=== PATIENT | male | born 1990 | race Two or more races ===

== ENCOUNTER 2017-08-12 23:21 | Emergency (ER) | payer BC ==
[~2017-08-12] VITALS: Ht 177.8 cm; Wt 59.0 kg
[2017-08-13 00:12] LABS: Lymphocytes # (auto) 1.5 uL; Monocytes # (auto) 0.4 uL; Nucleated Red Blood Cells % 0.2 %; Platelet Count (auto) 190 10^3/uL (140-450)
[2017-08-13 00:13] LABS: Basophils # (auto) 0 uL; Basophils % (auto) 0.7 % (0.0-2.0); Eosinophils # (auto) 0 uL; Eosinophils % (auto) 0.6 % (0.0-7.0); Hematocrit 52.3 % (41.0-53.0); Hemoglobin 17.9 g/dL (13.5-17.5); Lymphocytes % (auto) 26.7 % (10.0-50.0); Mean Corpuscular Hgb Conc. 34.2 g/dL (32.0-36.0); Mean Corpuscular Volume 99.3 fL (80.0-100.0); Monocytes % (auto) 7.6 % (0.0-12.0); Neutrophils # (auto) 3.7 uL; Neutrophils % (auto) 64.4 % (37.0-80.0); Red Blood Cells 5.27 10^6/uL (4.5-5.90); Red Cell Distribution Width 13.3 % (11.8-14.3); White Blood Cell 5.7 10^3/uL (4.4-10.8)
[2017-08-13 00:27] LABS: Albumin 4.5 g/dL (3.4-5.0); BUN/Creatinine Ratio 9.3; Calcium 8.3 mg/dL (8.5-10.1); Potassium 3.6 mmol/L (3.5-5.1)
[2017-08-13 00:40] LABS: Bilirubin, Total 0.2 mg/dL (0.2-1.0); Total Protein 8.7 g/dL (6.4-8.2)
[2017-08-13 00:42] LABS: Urine Bacteria NONE SEEN /hpf (None Seen); Urine Blood Negative /uL (Negative); Urine Mucus FEW (None Seen); Urine Specific Gravity 1.017 (1.001-1.035); Urine WBC <1 /hpf (0 - 3)
[2017-08-13 01:00] LABS: Amphetamine Screen, Urine NEGATIVE (NEGATIVE); Barbiturate Scree,Urine NEGATIVE (NEGATIVE); Benzodiazephine Screen, Urine NEGATIVE (NEGATIVE); Cannabinoid Screen, Urine NEGATIVE (NEGATIVE); Cocaine Screen, Urine NEGATIVE (NEGATIVE); Opiate Scree,Urine NEGATIVE (NEGATIVE); Phencyclidine Screen, Urine NEGATIVE (NEGATIVE)
[2017-08-13 05:00] VITALS: BP 101/68
== END 2017-08-13 06:10 | disposition left against medical advice (07) ==
LOC: ER 23:32
DX: R45.86 Emotional lability (principal); Z53.21 Procedure and treatment not carried out due to patient leaving prior to being seen by health care provider
CPT/HCPCS: 36415; 80053; 80307; 80320; 81001; 85025

== ENCOUNTER 2021-05-28 06:48 | Emergency (ER) | payer BC, OTHER ==
[~2021-05-28] VITALS: Ht 182.9 cm; Wt 70.3 kg
[2021-05-28 07:30] VITALS: BP 117/73
== END 2021-05-28 08:12 | disposition home or self-care (01) ==
LOC: ER 06:48
DX: R20.0 Anesthesia of skin (principal); R22.31 Localized swelling, mass and lump, right upper limb; Z88.0 Allergy status to penicillin
CPT/HCPCS: 29125; 73110

== ENCOUNTER 2024-11-15 14:31 | Outpatient (CLI) | payer MEDICAID ==
[2024-11-15 15:24] LABS: Urine Bacteria None Seen /hpf (None Seen)
[2024-11-15 15:31] LABS: Basophils # (auto) 0 10 ^3/uL (0-0.2); Basophils % (auto) 0.4 % (0.0-2.0); Eosinophils # (auto) 0.1 10 ^3/uL (0-0.8); Eosinophils % (auto) 0.6 % (0.0-7.0); Hematocrit 43.4 % (41.0-53.0); Hemoglobin 14.9 g/dL (13.5-17.5); Lymphocytes # (auto) 1.7 10 ^3/uL (0.4-5.4); Lymphocytes % (auto) 21.1 % (10.0-50.0); Mean Corpuscular Hemoglobin 30.6 pg (28.0-32.0); Mean Corpuscular Hgb Conc. 34.3 g/dL (32.0-36.0); Mean Corpuscular Volume 89.1 fL (80.0-100.0); Monocytes # (auto) 0.4 10 ^3/uL (0-1.3); Monocytes % (auto) 4.7 % (0.0-12.0); Neutrophils % (auto) 73.2 % (37.0-80.0); Nucleated Red Blood Cells % 0.2 %; Platelet Count (auto) 174 10^3/uL (140-450); Red Blood Cells 4.87 10^6/uL (4.5-5.90); Red Cell Distribution Width 12.9 % (11.8-14.3); White Blood Cell 8.2 10^3/uL (4.4-10.8)
[2024-11-15 15:45] LABS: Urine Blood Negative /uL (Negative); Urine Clarity Clear (Clear); Urine Color Light-Yellow (Yellow); Urine Mucus FEW (None Seen); Urine Protein, UAD Negative (Negative); Urine Specific Gravity 1.019 (1.001-1.035); Urine Squamous Epithelial Cell None Seen /hpf (<5); Urine Urobilinogen Normal (Negative); Urine WBC 1 /HPF (0-3); Urine pH 5.5 (5.0-9.0)
[2024-11-15 15:51] LABS: Alanine Aminotransferase 13 U/L (7-40); Alkaline Phosphatase 98 U/L (46-116); Anion Gap 7 (5-15); Aspartate Aminotransferase 14 U/L (13-40); BUN/Creatinine Ratio 10.5 (10.0-20.0); Calcium 10.3 mg/dL (8.7-10.4); Carbon Dioxide 28 mmol/L (20-31); Chloride 107 mmol/L (98-107); Cholesterol 162 mg/dL (< 200); Glucose 83 mg/dL (74-106); HDL Cholesterol 49 mg/dL (40-59); Potassium 3.9 mmol/L (3.5-5.1); Sodium 142 mmol/L (136-145); Total Protein 8.2 g/dL (5.7-8.2); Triglycerides 67 mg/dL (< 150)
[2024-11-15 15:52] LABS: Bilirubin, Total 0.4 mg/dL (0.2-1.0)
[2024-11-15 15:53] LABS: Albumin 5.2 g/dL (3.2-4.8); Blood Urea Nitrogen 8 mg/dL (9-23); LDL Cholesterol 110 mg/dL (< 100)
[2024-11-15 15:55] LABS: Hepatitis B Surface Antibody Positive (Negative)
[2024-11-15 16:10] LABS: Hepatitis B Surface Antigen Negative (Negative)
[2024-11-15 16:40] LABS: Hepatitis A Total Antibody Positive (Negative)
== END 2024-11-15 17:00 | disposition home or self-care (01) ==
LOC: LAB 14:31
PROVIDERS: ATTEND Nurse Practitioner Family
DX: I10 Essential (primary) hypertension (principal); F10.229 Alcohol dependence with intoxication, unspecified; Z00.00 Encounter for general adult medical examination without abnormal findings
CPT/HCPCS: 36415; 80053; 80061; 81001; 82607; 84443; 85025; 86695; 86696; 86703; 86706; 86708; 87340